=== PATIENT | female | born 1975 | race African-American/Black ===

== ENCOUNTER 2023-10-10 10:04 | Emergency (ER) | payer OTHER, SELFPAY ==
--- NOTE | ~2023-10-10 | XR_ITS ---
XR knee LT 3V DATE: 10/10/2023 10:41 INDICATION: Nontraumatic left knee pain TECHNIQUE: 4 views including crosstable lateral COMPARISON: None FINDINGS: Mild patellar enthesopathy at the quadriceps and patellar tendon insertion sites. There is minimal periarticular spurring of the patella. Moderately severe loss of medial compartment joint space height. There is periarticular spurring at t he medial and lateral compartments. No fracture or dislocation. No radiopaque intra-articular loose body or chondrocalcinosis. Mild to moderate suprapatellar knee joint effusion may be present Osteopenia. Morbid obesity. IMPRESSION: Tricompartment osteoarthritis, most prominent at the medial compartment Possible knee joint effusion Reviewed, dictated and finalized at location A. IMPRESSION: Tricompartment osteoarthritis, most prominent at the medial compart ment Possible knee joint effusion
--- NOTE | ~2023-10-10 | US_ITS ---
US venous doppler [facility] DATE: 10/10/2023 13:08 INDICATION: Nontraumatic anterior pain of left lower extremity TECHNIQUE: Real-time and color flow imaging and Doppler analysis of the veins of the left lower extre mity COMPARISON: None FINDINGS: The left greater saphenous vein is patent. There is spontaneous and phasic flow and normal augmentation and color flow signal and normal compression of the deep veins of the left lower extremi ty. IMPRESSION: No evidence of deep venous thrombosis of the left leg Reviewed, dictated and finalized at Location [facility]. Reviewed, dictated and finalized at location A.
[2023-10-10 10:11] VITALS: BP 177/101; PULSE 95; RESP 16; TEMP 36.4; O2SAT 97
--- NOTE | 2023-10-10 10:20 | ED.LOWEXIN ---
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 She denies any trauma, fever, chills, nausea, vomiting, shortness of breath, headache or chest pain. Patient is healthy otherwise. Did not take any pain medication at home. Started roughly 1-2 days ago Related Data Allergies Allergy/AdvReac Type Severity Reaction Status Date / Time No Known Allergies Allergy Verified 10/10/23 10:21 Review of Systems Review of Systems: All systems reviewed & are unremarkable except as noted in HPI and below Exam Narrative: General appearance: Well-developed, well-nourished Skin: Normal color Head: Normocephalic, nontraumatic Eyes: Clear conjunctiva ENT: Oropharynx normal, ears normal, nose normal Neck: Supple, nontender Chest and respiratory: Airway patent, no respiratory distress, no accessory muscle use Heart: Regular rate/rhythm Abdomen: Soft, nontender, no organomegaly, quiet bowel sounds Vascular: Normal peripheral pulses, normal capillary refill. Musculoskeletal: Diffuse tenderness left knee anteriorly, no swelling, no erythema, limited range of motion. Diffuse tenderness left lower extremity anteriorly, no bruises, no erythema or rash Neurologic: Alert and oriented ?3, DELIVERY REPRESENTATIVE is normal as tested, no gross motor deficit Course Vital Signs Vital signs: Vital Signs Temperature 36.4 C L 10/10/23 10:11 Pulse Rate 95 10/10/23 10:11 Respiratory Rate 16 10/10/23 10:11 Blood Pressure 177/101 H 10/10/23 10:11 Pulse Oximetry 97 10/10/23 10:11 Oxygen Delivery Room Air 10/10/23 10:11 Temperature 36.4 C L 10/10/23 10:11 Pulse Rate 95 10/10/23 10:11 Respiratory Rate 16 10/10/23 10:11 Blood Pressure 177/101 H 10/10/23 10:11 Pulse Oximetry 97 10/10/23 10:11 Oxygen Delivery Room Air 10/10/23 10:11 MDM - Extremity Injury (Lower) Imaging Data Radiologist's impression: Impressions Knee X-Ray 10/10/23 10:43 IMPRESSION: Tricompartment osteoarthritis, most prominent at the medial compartment Possible knee joint effusion Venous Doppler Study 10/10/23 13:11 IMPRESSION: No evidence of deep venous thrombosis of the left leg Discharge Plan Discharge Clinical Impression: Osteoarthritis of left knee Patient Disposition: Home, Self-Care Condition: Stable Instructions: Osteoarthritis (ED) Additional Instructions: RETURN IF SYMPTOMS ARE WORSENING , CALL YOUR FAMILY PHYSICIAN FOR APPOINTMENT, TAKE TYLENOL NEEDED FOR ACHES AND PAIN, CONTINUE HOME MEDICATIONS. Prescriptions: New diclofenac sodium 75 mg tablet,delayed release (DR/EC) 75 mg PO BID PRN (Reason: pain) Qty: 20 0RF Follow-up/Referrals: Anton Field MD [Physician] - 10/13/23 UNKNOWN,DOCTOR [Non-Staff] - Stand Alone Forms: Work/School Release IP
[2023-10-10] MEDS: HYDROcodone/acetaminophen (*CRX) 5-325 MG TABLET 1 TAB PO (10:38)
[2023-10-10] MEDS: IBUPROFEN 400 MG TABLET PO (10:39)
[2023-10-10] MEDS: ACETAMINOPHEN 500 MG TABLET 1000 MG PO (12:36)
[2023-10-10 13:16] VITALS: BP 155/97; PULSE 71; RESP 18; O2SAT 100
== END 2023-10-10 13:34 | disposition home or self-care (01) ==
PROVIDERS: Emergency Provider Emergency Medicine; PCP Nurse Practitioner Family
DX: M17.12 Unilateral primary osteoarthritis, left knee (principal)
CPT/HCPCS: 73562; 93971; 99284; A9270